=== PATIENT | male | born 1950 | race Caucasian/White ===

== ENCOUNTER 2024-04-27 10:12 | Outpatient (CLI) | payer BC | END 2024-04-27 10:13 | disposition home or self-care (01) | LOC: SCSRAD 10:12 | PROVIDERS: ATTEND Family Medicine | DX: M25.562 Pain in left knee (principal); M25.561 Pain in right knee; M25.512 Pain in left shoulder; M25.511 Pain in right shoulder; M17.0 Bilateral primary osteoarthritis of knee; M19.012 Primary osteoarthritis, left shoulder; M19.011 Primary osteoarthritis, right shoulder ==